=== PATIENT | female | born 1970 | race Native Hawaiian/Other Pacific Islander ===

== ENCOUNTER 2016-10-17 09:53 | Emergency (ER) | payer OTHER ==
[~2016-10-17] VITALS: Ht 149.9 cm; Wt 58.0 kg
[~2016-10-17 09:53] MED LIST: ACET7.5T70 PO; ALPR0.2566 PO; ASA LO-DOSE81 MG OR; FURO20TA67 PO; KLOR-CON 1010 MEQ OR; LEVO0.0218 PO; MONT10TA PO; OPTIVAR0.05 % OP; RANI150T78 PO; ROSU10TA PO; Z-PAK PO
[2016-10-17] MEDS ORDERED: GOODY1 OR (10:17)
[2016-10-17 11:40] VITALS: BP 126/79; TEMP 98.2
== END 2016-10-17 12:06 | disposition home or self-care (01) ==
LOC: ED 09:53
DX: N93.8 Other specified abnormal uterine and vaginal bleeding (principal)
CPT/HCPCS: 81000; 87070; 87590; 99282

== ENCOUNTER 2016-12-05 13:23 | Outpatient (CLI) | payer OTHER ==
[~2016-12-05 13:23] MED LIST changes: +GOODY1 OR
[2016-12-05 13:54] LABS: PLATELET COUNT 247 K/uL (152-353)
[2016-12-05 14:00] LABS: POTASSIUM 4.4 mmol/L (3.6-5.2)
[2016-12-05 14:03] LABS: SODIUM 139 mmol/L (136-145)
== END 2016-12-05 19:32 | disposition home or self-care (01) ==
LOC: LAB 13:23
PROVIDERS: Nurse Practitioner Family
DX: F41.8 Other specified anxiety disorders (principal); I25.10 Atherosclerotic heart disease of native coronary artery without angina pectoris; E78.4 Other hyperlipidemia; E03.8 Other specified hypothyroidism; F41.1 Generalized anxiety disorder
CPT/HCPCS: 80053; 80061; 83036; 84439; 84443; 85027

== ENCOUNTER 2017-03-23 17:39 | Emergency (ER) | payer OTHER ==
[~2017-03-23] VITALS: Ht 149.9 cm; Wt 54.4 kg
[2017-03-23 18:05] LABS: PLATELET COUNT 234 K/uL (152-353)
[2017-03-23 18:07] LABS: POTASSIUM 3.6 mmol/L (3.6-5.2); SODIUM 140 mmol/L (136-145)
[2017-03-23 18:39] LABS: PARTIAL THROMBOPLASTIN TIME 27.3 SECONDS (24.5-33.6)
[2017-03-23 19:25] VITALS: BP 137/83; TEMP 98.2
== END 2017-03-23 19:25 | disposition home or self-care (01) ==
LOC: ED 17:39
DX: R07.89 Other chest pain (principal)
CPT/HCPCS: 36415; 80053; 82550; 84484; 85027; 85610; 85730; 86318; 93005; 99284

== ENCOUNTER 2017-12-12 11:07 | Inpatient (IN) | payer OTHER ==
[~2017-12-12] VITALS: Ht 149.9 cm; Wt 60.8 kg
[2017-12-12 11:16] VITALS: BP 130/63; TEMP 98
[2017-12-12 11:40] LABS: PLATELET COUNT 254 K/uL (152-353)
[2017-12-12 11:51] LABS: POTASSIUM 3.9 mmol/L (3.6-5.2)
[2017-12-12 16:22] VITALS: BP 104/56; TEMP 99.4; Ht 149.9 cm; Wt 60.8 kg
[2017-12-12 20:00] VITALS: BP 98/55; TEMP 98.5
[2017-12-13] VITALS (50 sets, daily range): BP systolic 75–140; BP diastolic 49–85; TEMP 98–99.7
[2017-12-13 04:57] LABS: PLATELET COUNT 208 K/uL (152-353)
[2017-12-13 05:14] LABS: POTASSIUM 2.7 mmol/L (3.6-5.2)
[2017-12-13 05:23] LABS: PARTIAL THROMBOPLASTIN TIME 29.8 SECONDS (24.5-33.6)
[2017-12-14] VITALS (67 sets, daily range): BP systolic 92–128; BP diastolic 51–75; TEMP 97.8–99.7
[2017-12-14 06:56] LABS: POTASSIUM 3.9 mmol/L (3.6-5.2)
[2017-12-14 07:46] LABS: PLATELET COUNT 208 K/uL (152-353)
[2017-12-15] VITALS (23 sets, daily range): BP systolic 12–131; BP diastolic 53–76; TEMP 97.7–99.4
[2017-12-15 06:38] LABS: PLATELET COUNT 225 K/uL (152-353)
[2017-12-15 06:48] LABS: POTASSIUM 3.1 mmol/L (3.6-5.2)
[2017-12-16] VITALS (22 sets, daily range): BP systolic 100–135; BP diastolic 63–89; TEMP 97.9–99
[2017-12-16 06:26] LABS: PLATELET COUNT 246 K/uL (152-353)
[2017-12-16 06:33] LABS: POTASSIUM 3.6 mmol/L (3.6-5.2)
[2017-12-17] VITALS (12 sets, daily range): BP systolic 87–128; BP diastolic 53–74; TEMP 97.5–98.9
[2017-12-17 06:46] LABS: PLATELET COUNT 249 K/uL (152-353)
[2017-12-18] VITALS: BP 87/51; TEMP 98
[2017-12-18 04:00] VITALS: BP 95/48; TEMP 97.7
[2017-12-18 06:46] LABS: POTASSIUM 3.2 mmol/L (3.6-5.2)
[2017-12-18 08:15] VITALS: BP 106/66; TEMP 98.7
[2017-12-18 11:49] VITALS: BP 104/52; TEMP 98.1
== END 2017-12-18 16:12 | disposition home or self-care (01) | DRG 190 ==
LOC: ED 11:07 → MED/SURG 13:26 → ICU 12-13 02:55 → MED/SURG 12-17 10:50
PROVIDERS: Family Medicine; Nurse Practitioner Family
DX: J44.0 Chronic obstructive pulmonary disease with (acute) lower respiratory infection (principal); J18.8 Other pneumonia, unspecified organism; I50.31 Acute diastolic (congestive) heart failure; J96.02 Acute respiratory failure with hypercapnia; J44.1 Chronic obstructive pulmonary disease with (acute) exacerbation; F31.89 Other bipolar disorder; K21.9 Gastro-esophageal reflux disease without esophagitis; F43.10 Post-traumatic stress disorder, unspecified; Z86.711 Personal history of pulmonary embolism; I95.89 Other hypotension; I82.499 Acute embolism and thrombosis of other specified deep vein of unspecified lower extremity
CPT/HCPCS: 36415; 36600; 51702; 80053; 80162; 81000; 82805; 83605; 83880; 84145; 85027; 85379; 85610; 85730; 87070; 87205; 87899; 93005; 93306; 94640; 94664; 94760; 96365; 96366; 96372; 96374; 96375; 99284; J0456; J0696; J1160; J1265; J1650; J1885; J1940; J2060; J2270; J2930; J3475; J3490

== ENCOUNTER 2018-08-18 09:01 | Emergency (ER) | payer OTHER ==
[~2018-08-18] VITALS: Ht 149.9 cm; Wt 59.9 kg
[2018-08-18 10:22] LABS: PLATELET COUNT 218 K/uL (152-353)
[2018-08-18 10:30] LABS: POTASSIUM 3.9 mmol/L (3.6-5.2)
[2018-08-18 12:23] VITALS: BP 141/89; TEMP 97.6
== END 2018-08-18 12:23 | disposition home or self-care (01) ==
LOC: ED 09:01
PROVIDERS: Emergency Medicine
DX: R07.81 Pleurodynia (principal); R07.89 Other chest pain
CPT/HCPCS: 36415; 80053; 82150; 83690; 85027; 99283; J1885

== ENCOUNTER → 2018-11-23 06:03 | Outpatient (CLI) | payer OTHER | END | disposition home or self-care (01) | LOC: AMB 06:03 | DX: I46.9 Cardiac arrest, cause unspecified (principal) ==